=== PATIENT | female | born 1960 | race Caucasian/White ===

== ENCOUNTER 2024-12-01 16:48 | Emergency (ER) | payer OTHER, SELFPAY ==
[2024-12-01 16:54] VITALS: BP 134/79
--- NOTE | 2024-12-01 19:05 | ED.GENMED ---
History of Present Illness
General
Chief Complaint: Musculo-Skeletal Complaint
Source: patient
Exam Limitations: none
Time Seen by Provider: 12/01/24 17:48
Nursing documentation reviewed up to this point in time: agreed with
History of Present Illness
History of Present Illness:
Patient is a 64-year female who presents to the ER complaining of left ankle pain. Patient rolled her ankle prior to arrival. She does have discomfort and has a sharp pain with lateral aspecct. She denies any other injuries.
Past History
Past History
ED Past Medical History: None
ED Past Surgical History: Orthopedic
Social History
Tobacco: Non-smoker
Alcohol: None
Drug: None
Personal: Other
Living: with family
Employment: Employed ([employer])
Family History
Family History: Other (Noncontributory)
Review of Systems
Review of Systems
Allergies reviewed?: Yes
All Other Systems: ROS reviewed and negative except as documented in HPI and ROS
Constitutional: Reports no symptoms
Musculoskeletal: Reports other (left ankle pain )
Skin: Reports no symptoms
Psychiatric: Reports no symptoms
Phy Exam
General Physical Exam
General Presentation: no apparent distress
General age: appears stated age
General Skin: warm and dry
General Habitus: normal
General Mental: alert
General Hydration: appears well hydrated
Neurological Exam
Neurological Exam: alert and oriented x3
Musculoskeletal Exam
Musculoskeletal Exam: other (Left lower extremity strong pulses tenderness to left lateral malleolus with no obvious swelling no proximal tib-fib tenderness no proximal fifth metatarsal tenderness no abrasions or ecchymosis)
Skin Exam
Skin Exam: normal color and warm/dry
Psychiatric Exam
Psychiatric Exam: normal mood/affect
Course
Orders/Labs/Results
Orders:
Orders
12/01/24 16:55
Ankle, left 3 view CR [CR Ankle - Left Min 3 Views ] Urgent
Comment:
Reason For Exam: pain, trauma
12/01/24 19:05
boot [Ortho Boot Left- Treatment] ONCE
Short or tall?: Tall
Vital Signs
Initial and Last Documented VS:
Initial Vital Signs
Temp Pulse Resp BP Pulse Ox
98.4 F 77 18 134/79 94
12/01/24 16:54 12/01/24 16:54 12/01/24 16:54 12/01/24 16:54 12/01/24 16:54
Last Documented Vital Signs
Temp Pulse Resp BP Pulse Ox
98.4 F 77 18 134/79 94
12/01/24 16:54 12/01/24 16:54 12/01/24 16:54 12/01/24 16:54 12/01/24 16:54
MDM/Problems Addressed
Differential Diagnosis Includes:
Not limited to ankle sprain versus fracture
MDM/Problems Addressed:
X-rays are negative no obvious swelling symptoms are consistent with ankle sprain. I offered patient Shan wrap/air splint and crutches or boot she wishes to have the boot as she has had multiple ankle fractures in the past and has to get around to
care for her 80-year-old mother. I did review with patient however to remove when she is resting and follow-up with orthopedics. She has seen Dr. Poole in the past several like to follow-up with this group.
*Radiology
Radiology exam reviewed: radiology read reviewed
*Pulse Oximetry
Patient hypoxic: no
*Critical Care Note
Total Time (30-74mins, 75-104mins- exclusive of procedures): Not Applicable
ED Attending Note
-
Portions of this chart may have been created with voice recognition software.� Occasional wrong word or��sound alike� substitutions may have occurred due to the inherent limitations of voice recognition software.
Discharge Plan
Departure
Patient Disposition: Home (Routine Discharge)
Date of Disposition: 12/01/24
Time of Disposition: 19:08
Patient with high blood pressure during this ER visit?: Yes
Condition: Fair
Covid-19: Not Applicable
Discharge Problem:
Ankle sprain
Instructions: Sprain (DC), BLOOD PRESSURE
Prescriptions:
No Action
dextromethorphan-guaifenesin 10 ML syrup
10 ml PO Q4HPRN PRN (Reason: cough)
Multivitamin
2 tab PO DAILY
ipratropium-albuterol 3 ML solution for nebulization
3 ml inhalation R Q4HPRN PRN (Reason: SOB/COUGHING) Qty: 1 0RF
guaifenesin [Mucus Relief ER] 600 MG tablet extended release 12hr
600 mg PO Q12 Qty: 0 0RF
Rx Instructions:
Take for one week
prednisone 10 MG tablet
10 mg PO .TAPER Qty: 30 0RF
Rx Instructions:
Take 40mg daily x3days, 30mg daily x3days, 20mg daily x3days, 10mg daily x3days.
doxycycline hyclate 100 MG capsule
100 mg PO Q12 Qty: 6 0RF
Rx Instructions:
Take for 3 days
cefuroxime axetil 500 MG tablet
500 mg PO BID Qty: 6 0RF
Rx Instructions:
Take for 3 days
albuterol sulfate [Proventil HFA] 90 MCG/PUFF HFA aerosol inhaler
2 puff inhalation Q4HPRN PRN (Reason: shortness of breath ) Qty: 0 0RF
Referrals:
Bulmaro Poole MD [Active] -
Liudmila Grider DO [Family Provider] -
Activity Restrictions/Additional Instructions:
As discussed you may wear boot for support however rest as much as possible .keep elevated as much as possible and remove the boot while resting. You may take ibuprofen as needed every 8 hours for discomfort. Follow-up with orthopedics in the
next several days call tomorrow to make an appointment and return if any worsening of symptoms.
Interventions
Interventions:
*Risk Screen - Suicide Last Done: 12/01/24 17:17
*General Assessment Last Done: 12/01/24 17:17
*Neglect/Abuse Screening Last Done: 12/01/24 17:17
*ED COVID-19 Vaccine History Last Done: 12/01/24 17:17
ED-Musculoskeletal Assessment Last Done: 12/01/24 17:17
Discharge Date and Time
Print Language: OCCITAN
== END 2024-12-01 21:28 | disposition home or self-care (01) ==
LOC: EMR 16:48
PROVIDERS: EMERGENCY PHYSICIAN Emergency Medicine; FAMILY PHYSICIAN Internal Medicine
DX: S93.409A Sprain of unspecified ligament of unspecified ankle, initial encounter (principal); X50.1XXA Overexertion from prolonged static or awkward postures, initial encounter
CPT/HCPCS: 99283; 73610

== ENCOUNTER 2025-01-25 11:46 | Emergency (ER) | payer SELFPAY ==
[2025-01-25 11:56] VITALS: BP 165/92
--- NOTE | 2025-01-25 12:31 | ED.GENMED ---
History of Present Illness
General
Chief Complaint: Musculo-Skeletal Complaint
Source: patient
Time Seen by Provider: 01/25/25 12:20
History of Present Illness
History of Present Illness:
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
of the event and was brought for further evaluation and x-ray imaging denies any previous history of injury or surgery but does note multiple orthopedic foot and ankle injuries and has an appointment scheduled for this coming Monday for her foot and
ankle with her usual orthopedist. Denies any other injuries. She does note pain seems to worsen with the right elbow with any rotational movements and also over the last 30 minutes or so noticed discomfort with palpation at the posterior portion
of her elbow.
Past History
Past History
ED Past Medical History: Asthma
ED Past Surgical History: Orthopedic
Social History
Tobacco: Non-smoker
Alcohol: None
Drug: None
Personal: Single
Living: with family
Employment: Employed ([employer])
Family History
Family History: Other (Noncontributory)
Review of Systems
Review of Systems
All Other Systems: ROS reviewed and negative except as documented in HPI and ROS
Phy Exam
Physical Exam
Physical Exam:
GENERAL: Alert , in no apparent distress
EYE: conjunctiva clear
Head: Normocephalic atraumatic
NECK: Supple,
ENT: mmm.
LUNGS: no acute respiratory distress
NEUROLOGICAL: Alert and oriented
SKIN: Warm and dry, skin intact.
MUSCULOSKELETAL: Right upper extremity: Makeshift sling in place. No obvious deformity, no breaks in the skin. Tenderness over the proximal forearm. Easily palpable radial pulse. Cap refill less than 2 seconds. Sensation grossly intact to light
touch.
PSYCH: Normal and appropriate interaction.
Scores
Heart Failure Risk
Heart Failure Risk Score: Not Applicable
Heart Score for Chest Pain Patients
STEMI patient?: Not applicable
Withdrawal Assessment of Alcohol
Withdrawal Assessment Completed?: Not applicable
Course
Orders/Labs/Results
Orders:
Orders
01/25/25 11:56
Forearm, Right 2 View [CR Forearm - Right 2 View] Urgent
Comment:
Reason For Exam: pain
01/25/25 12:29
Sling Right-Treatment ONCE
CR Elbow - Right Min 3 Views Urgent
Comment:
Reason For Exam: fall, pain with rotational movement
Vital Signs
Initial and Last Documented VS:
Initial Vital Signs
Temp Pulse Resp Pulse Ox
98.8 F 80 18 95
01/25/25 11:54 01/25/25 11:54 01/25/25 11:54 01/25/25 11:54
Last Documented Vital Signs
Temp Pulse Resp BP Pulse Ox
98.8 F 80 18 165/92 95
01/25/25 11:54 01/25/25 11:54 01/25/25 11:54 01/25/25 11:56 01/25/25 11:54
MDM/Problems Addressed
Differential Diagnosis Includes:
Sprain, contusion, fracture
MDM/Problems Addressed:
64-year-old female presenting to the ER for evaluation of right elbow injury sustained an accidental fall this afternoon, pain with rotational movements and palpation of the proximal forearm/elbow. Given increased pain with rotation I do have
concern for potential radial head fracture. X-ray of the forearm did not yield any obvious fractures however we will send patient back to x-ray for dedicated elbow view. Will keep in sling for comfort. Will need continued Ortho follow-up.
Anticipated discharge home.
*Radiology
Radiology exam reviewed: preliminary read by ED provider (no forearm fracture)
*Pulse Oximetry
Patient hypoxic: no
*Critical Care Note
Total Time (30-74mins, 75-104mins- exclusive of procedures): Not Applicable
Patient Management
Escalation/DeEscalation of care consider admission/obs:
On dedicated elbow view I do suspect there is an avulsive injury off of the proximal ulna as well as still possible non-displaced radial head fx given pain with rotational movements. Discussed these results with patient. Continue sling for
comfort. NSAIDs/Tylenol for pain. Patient will follow-up with her orthopedist. Aware of return precautions.
ED Attending Note
-
Portions of this chart may have been created with voice recognition software.� Occasional wrong word or��sound alike� substitutions may have occurred due to the inherent limitations of voice recognition software.
Discharge Plan
Departure
Patient Disposition: Home (Routine Discharge)
Date of Disposition: 01/25/25
Time of Disposition: 13:08
Patient with high blood pressure during this ER visit?: Yes
Discharge Problem:
Closed fracture of proximal end of right ulna
Instructions: Elbow Fracture, Adult ED
Prescriptions:
No Action
dextromethorphan-guaifenesin 10 ML syrup
10 ml PO Q4HPRN PRN (Reason: cough)
Multivitamin
2 tab PO DAILY
ipratropium-albuterol 3 ML solution for nebulization
3 ml inhalation R Q4HPRN PRN (Reason: SOB/COUGHING) Qty: 1 0RF
guaifenesin [Mucus Relief ER] 600 MG tablet extended release 12hr
600 mg PO Q12 Qty: 0 0RF
Rx Instructions:
Take for one week
prednisone 10 MG tablet
10 mg PO .TAPER Qty: 30 0RF
Rx Instructions:
Take 40mg daily x3days, 30mg daily x3days, 20mg daily x3days, 10mg daily x3days.
doxycycline hyclate 100 MG capsule
100 mg PO Q12 Qty: 6 0RF
Rx Instructions:
Take for 3 days
cefuroxime axetil 500 MG tablet
500 mg PO BID Qty: 6 0RF
Rx Instructions:
Take for 3 days
albuterol sulfate [Proventil HFA] 90 MCG/PUFF HFA aerosol inhaler
2 puff inhalation Q4HPRN PRN (Reason: shortness of breath ) Qty: 0 0RF
Referrals:
Max Mcdermott MD [Active] -
Liudmila Grider DO [Family Provider] -
Interventions
Interventions:
*Risk Screen - Suicide Last Done: 01/25/25 11:51
*General Assessment Last Done: 01/25/25 11:51
*Neglect/Abuse Screening Last Done: 01/25/25 12:55
*ED COVID-19 Vaccine History Last Done: 01/25/25 12:55
*Nursing Disposition Last Done: 01/25/25 13:31
ED-Musculoskeletal Assessment Last Done: 01/25/25 12:55
Discharge Date and Time
Discharge Date/Time: 01/25/25 13:32
Print Language: [email or web address]
== END 2025-01-25 13:32 | disposition home or self-care (01) ==
LOC: EMR 11:46
PROVIDERS: EMERGENCY PHYSICIAN Student in an Organized Health Care Education/Training Program; FAMILY PHYSICIAN Internal Medicine
DX: S52.001A Unspecified fracture of upper end of right ulna, initial encounter for closed fracture (principal); W01.0XXA Fall on same level from slipping, tripping and stumbling without subsequent striking against object, initial encounter; R03.0 Elevated blood-pressure reading, without diagnosis of hypertension
CPT/HCPCS: 99283; 73080; 73090